=== PATIENT | female | born 1995 | race Caucasian/White ===

== ENCOUNTER 2018-07-11 02:19 | Emergency (ER) | payer BC, MEDICAID ==
[2018-07-11 02:54] LABS: URINE SOURCE RANDOM
[2018-07-11 02:57] LABS: HEMATOCRIT 38.8 % (41.0-60); HEMOGLOBIN 13.3 gm/dL (12-16); MEAN CELL VOLUME 92.2 fl (81-100); MEAN CORPUSCULAR HEMOGLOBIN 31.6 pg (27.0-31.0); MEAN CORPUSCULAR HGB CONC 34.3 pg (28.0-36.0); MEAN PLATELET VOLUME 7.6 fl; PLATELET COUNT 251 Th/cmm (150-400); RED BLOOD COUNT 4.21 Mil/cmm (3.80-5.10); RED CELL DISTRIBUTION WIDTH 11.8 % (11.5-20.0)
[2018-07-11 02:58] LABS: URINE BILIRUBIN MODERATE (NEGATIVE); URINE BLOOD LARGE (NEGATIVE); URINE GLUCOSE (UA) NEGATIVE (NEGATIVE); URINE KETONE 15 mg/dL (NEGATIVE); URINE LEUKOCYTE ESTERASE LARGE (NEGATIVE); URINE MICROSCOPIC INDICATED? YES; URINE NITRATE POSITIVE (NEGATIVE); URINE PH 5.5 (4.6 - 8.0); URINE PROTEIN >=300 mg/dL (NEGATIVE)
[2018-07-11 03:13] LABS: ALB/GLOB RATIO 2.1 (1.0-1.8); ALBUMIN 4.4 gm/dL (3.7-5.3); ALKALINE PHOSPHATASE 38 U/L (34-104); ANION GAP 11.3 (7.0-16.0); BILIRUBIN,TOTAL 0.8 mg/dL (0.3-1.0); BUN - UREA NITROGEN 11 mg/dL (7-25); CALCIUM SERUM 9.2 mg/dL (8.6-10.3); CARBON DIOXIDE 25.3 mEq/L (21.0-31.0); CHLORIDE 103 mEq/L (98-107); CREATININE - SERUM 0.9 mg/dL (0.6-1.2); GFR AFRICAN-AMERICAN > 60.0 ml/min (>90); GFR NON AFRICAN-AMERICAN > 60.0 ml/min; GLUCOSE 102 mg/dL (70-105); POTASSIUM SERUM 3.6 mEq/L (3.5-5.1); SGOT 16 U/L (13-39); SGPT/ALT 15 U/L (7-52); SODIUM SERUM 136 mEq/L (136-145); TOTAL PROTEIN,SERUM 6.5 gm/dL (6.0-8.3)
[2018-07-11 03:18] LABS: WHITE BLOOD COUNT 16.6 Th/cmm (4.8-10.8)
[2018-07-11 03:31] LABS: URINE CLARITY CLOUDY (CLEAR); URINE COLOR ORANGE
[2018-07-11 03:33] LABS: URINE BACTERIA MODERATE /hpf (NONE SEEN); URINE EPITHELIAL CELLS MODERATE /lpf (FEW); URINE ICTOTEST NEGATIVE (NEGATIVE); URINE RBC 25-50 /hpf (0-5); URINE WBC >100 /hpf (0-5)
[2018-07-11 03:44] LABS: BAND NEUTROPHILE 4 % (0-10); LYMPHOCYTE 9 % (20-50); NEUTROPHILS 87 % (40-80); PLATELET ESTIMATE ADEQUATE (NORMAL)
[2018-07-11] MEDS: cefTRIAXone 1 GM in Sodium Chloride 0.9% 50 ML IV ONE (03:45)
[2018-07-11] MEDS: Sodium Chloride 0.9% 1,000 ML IV ONE (03:46)
--- NOTE | 2018-07-11 04:35 | ED Physician Chart ---
ED Chief Complaint/HPI - Patient Information Date Seen:: 07/11/18 Time Seen:: 03:31 Chief Complaint:: Urinary burning sensation History of Present Illness:: 22 yo female developed urinary burning sensation, frequency and urgency for 1 day. Pt had low abdominal pain and blood clots in urine tonight with dizziness, sweats and fever. Pt presented to ER for evaluation. Pt denied any flank pain. Allergies:: Allergies Allergy/AdvReac Type Severity Reaction Status Date / Time No Known Allergies Allergy Verified 07/11/18 02:32 Vitals:: Vital Signs - 8 hr 07/11/18 07/11/18 07/11/18 02:25 03:51 04:19 Temp 97.9 F 98.9 F 98.9 F HR 89 83 80 RR 18 16 15 BP 112/73 120/59 120/59 O2 Sat % 98 100 97 ED Review of Systems - Review of Systems General/Constitutional: Fever Skin: No rash Head: Light headed Eyes: No pain ENT: No nasal drainage Neck: No neck pain Cardio Vascular: No chest pain Pulmonary: No SOB GI: No nausea, No vomiting G/U: Dysuria, Frequency, Hematuria Musculoskeletal: Bone or joint pain Neurological: No focal symptoms ED Past Medical History - Past Medical History Past Medical History: Other (Polycystic ovarian syndrome, high DHEA sulfate level) Social History: Non Smoker, Alcohol, No Drug Use, Other (sexually active) Surgical History: None Family Medical History - Family Member Mother History Unknown: Yes ED Physical Exam - Physical Examination General/Constitutional: Awake, Alert Head: Atraumatic Eyes: PERRL Skin: No skin lesions ENMT: Nasal exam nl Neck: No nuchal rigidity Respiratory: No Wheeze/Rhonchi/Rales Cardio Vascular: RRR, No murmur, gallop, rubs, NL S1 S2 GI: Nondistended : No CVA tenderness Extremities: normal strength in all extremities Neuro/Psych: No focal deficits ED Labs/Radiology/EKG Results - Lab Results Results: Laboratory Tests 07/11/18 07/11/18 07/11/18 02:30 02:30 02:50 WBC 16.6 H RBC 4.21 Hgb 13.3 Hct 38.8 L MCV 92.2 MCH 31.6 H MCHC Differential 34.3 RDW 11.8 Plt Count 251 MPV 7.6 Add Manual Diff YES Band Neutrophils % 4 Neutrophils (Manual) 87 H Lymphocytes 9 L Platelet Estimate ADEQUATE Sodium Potassium Chloride Carbon Dioxide Anion Gap BUN Creatinine Est GFR ( Amer) Est GFR (Non-Af Amer) BUN/Creatinine Ratio Glucose Whole Bld Lactic Acid Calcium Total Bilirubin AST ALT Alkaline Phosphatase Total Protein Albumin Globulin Albumin/Globulin Ratio Urine Source RANDOM Urine Color ORANGE Urine Clarity CLOUDY H Urine pH 5.5 Ur Specific [place] >= 1.030 Urine Protein >=300 Urine Glucose (UA) NEGATIVE Urine Ketones 15 H Urine Blood LARGE H Urine Nitrate POSITIVE H Urine Bilirubin MODERATE H Urine Ictotest NEGATIVE Urine Urobilinogen 1.0 Ur Leukocyte Esterase LARGE H Urine RBC 25-50 H Urine WBC >100 H Ur Epithelial Cells MODERATE Urine Bacteria MODERATE H Urine Test NEGATIVE 07/11/18 07/11/18 02:50 03:25 WBC RBC Hgb Hct MCV MCH MCHC Differential RDW Plt Count MPV Add Manual Diff Band Neutrophils % Neutrophils (Manual) Lymphocytes Platelet Estimate Sodium 136 Potassium 3.6 Chloride 103 Carbon Dioxide 25.3 Anion Gap 11.3 BUN 11 Creatinine 0.9 Est GFR ( Amer) > 60.0 Est GFR (Non-Af Amer) > 60.0 BUN/Creatinine Ratio 12.2 Glucose 102 Whole Bld Lactic Acid 0.46 L Calcium 9.2 Total Bilirubin 0.8 AST 16 ALT 15 Alkaline Phosphatase 38 Total Protein 6.5 Albumin 4.4 Globulin 2.1 Albumin/Globulin Ratio 2.1 H Urine Source Urine Color Urine Clarity Urine pH Ur Specific [place] Urine Protein Urine Glucose (UA) Urine Ketones Urine Blood Urine Nitrate Urine Bilirubin Urine Ictotest Urine Urobilinogen Ur Leukocyte Esterase Urine RBC Urine WBC Ur Epithelial Cells Urine Bacteria Urine Test ED Assessment - Assessment General Assessment: Leukocytosis Urinary tract infection Hematuria Assessment/Comments:: CBC, CMP, UA Rocephin 1g IV NS 1L IV bolus D/c home ED Septic Shock - . Is Septic Shock (SBP<90, OR Lactate>4 mmol\L) present?: No - <6hrs of presentation: Vital Signs: Vital Signs - 8 hr 07/11/18 07/11/18 07/11/18 02:25 03:51 04:19 Temp 97.9 F 98.9 F 98.9 F HR 89 83 80 RR 18 16 15 BP 112/73 120/59 120/59 O2 Sat % 98 100 97 ED Reassessment (Disposition) - Reassessment Reassessment Condition:: Improved - Aftercare/Follow up Instructions Notes:: F/u PCP or return to ER if symptoms worsen Medication Prescribed:: Keflex 500 mg PO q6h x 7 days, #28 - Patient Disposition Discharge/Transfer:: Home
== END 2018-07-11 04:55 | disposition home or self-care (01) ==
LOC: ER 02:19
DX: N39.0 Urinary tract infection, site not specified (principal); D72.829 Elevated white blood cell count, unspecified; R31.9 Hematuria, unspecified
CPT/HCPCS: 99283; 96365; 36415; 83605; 85007; 85025; 87086; 81001; 81025; 80053; 87040; J0696; J7030; Z7502